=== PATIENT | female | born 1995 | race Hispanic/Latino ===

== ENCOUNTER 2022-01-25 21:22 | Inpatient (IN) | payer MEDICAID, OTHER, SELFPAY ==
[2022-01-25 21:50] VITALS: BMI 30.7
[2022-01-25] MEDS ORDERED: hydrALAZINE 20 MG/ML VIAL SLOW IVP PRN ×3 (22:19→23:40)
[2022-01-25 22:56] LABS: #Monocytes 0.4 10x3/uL (0.0-1.1); #Neutrophils 5.9 10x3/uL (1.5-8.4); %Basophils 0.4 % (0.0-2.0); %Eosinophils 0.5 % (0.0-6.0); %Lymphocytes 21.8 % (18.0-47.0); %Neutrophils 71.8 % (40.0-75.0); Hemoglobin 11.4 g/dL (12.0-15.5); Mean Corpuscular HGB CONC 34.7 g/dL (32.0-36.0); Mean Corpuscular Hemoglobin 28.8 pg (27.0-33.0); Mean Corpuscular Volume 83.1 fl (81.6-98.3); Mean Platelet Volume 10.5 fl (7.4-10.4); Platelet Count 245 10x3/uL (150-450); RBC Distribution Width 13.2 % (11.5-14.5); Red Blood Cell (RBC) Count 3.96 10x6/uL (3.90-5.03); White Blood Cell (WBC) Count 8.2 10x3/uL (3.5-10.5)
[2022-01-25 23:12] LABS: ALT (SGPT) 44 U/L (8-55); AST (SGOT) 37 U/L (5-34); Albumin 2.9 g/dL (3.5-5.0); Alkaline Phosphatase 335 U/L (40-110); Anion Gap 17 mmol/L (10-20); BUN (Urea Nitrogen) 10 mg/dL (7.0-18.7); Bilirubin, Total 1.1 mg/dL (0.2-1.2); Calc. Creatinine Clearance 138 mL/min (70-130); Carbon Dioxide 21 mmol/L (22-29); Chloride 101 mmol/L (98-107); Creatinine, Urine 253.65 mg/dL (47-110); Globulin 3.6 g/dL (2.4-3.5); Glucose 98 mg/dL (70-105); Potassium 4.1 mmol/L (3.5-5.1); Protein, Total 6.5 g/dL (6.0-8.3); Sodium 135 mmol/L (136-145)
[2022-01-25 23:19] LABS: Bilirubin 3+ (Negative); Blood, Urine 150 (Negative); Clarity Cloudy (Clear); Glucose, Urine (Dipstick) Normal (Negative); Ketone, Urine 5 mg/dL (Negative); Leukocyte 100 (Negative); Nitrite Negative (Negative); Protein, Urine (Dipstick) 100 mg/dl (Neg-Trace)
[2022-01-25 23:20] LABS: Urine Culture Reflex No No
[2022-01-25] MEDS ORDERED: Docusate 100 MG CAP PO PRN (23:27)
[2022-01-25] MEDS ORDERED: Promethazine HCl 25 MG/ML VIAL IM PRN ×3 (23:27→23:40)
[2022-01-25] MEDS ORDERED: Acetaminophen 500 MG TAB PO PRN (23:27)
[2022-01-25] MEDS ORDERED: Ondansetron PF 4 MG/2 ML Vial IVP PRN ×3 (23:27→23:40)
[2022-01-25] MEDS ORDERED: Butorphanol Tartrate 1 MG/ML VIAL SLOW IVP PRN (23:27)
[2022-01-25] MEDS ORDERED: Lorazepam 2 MG/ML VIAL SLOW IVP PRN ×2 (23:27→23:33)
[2022-01-25] MEDS ORDERED: Calcium Gluc 4.6 MEQ/10 ML (100 MG/ML) SLOW IVP PRN ×2 (23:27→23:33)
[2022-01-25 23:28] LABS: WBC/HPF 0-3 HPF (0-3)
[2022-01-25 23:29] LABS: Bacteria/HPF Rare-Few HPF (None Seen); Squamous Epithelial 21-50 HPF (0-3)
[2022-01-25] MEDS ORDERED: Lactated Ringer's 1,000 ML IV SCH ×2 (23:30→23:59)
[2022-01-25] MEDS ORDERED: Magnesium Sulfate 20 gm/500 ml 4 GM/100 ML BAG IVPB SCH (23:45)
[2022-01-25] MEDS ORDERED: Magnesium Sulfate 20 gm/500 ml 20 GM/500 ML BAG IVPB SCH (23:45)
[2022-01-25] MEDS ORDERED: Magnesium Sulfate 4 GM in Sodium Chloride 0.9% 250 ML 250 ML IVPB SCH (23:45)
[2022-01-25] MEDS ORDERED: Betamet Acet/Betamet Na Ph 30 MG/5 ML VIAL IM SCH ×2 (23:59)
[2022-01-26] MEDS ORDERED: Betamet Acet/Betamet Na Ph 30 MG/5 ML VIAL ONE (00:06)
[2022-01-26] MEDS: Betamet Acet/Betamet Na Ph 30 MG/5 ML VIAL IM SCH ×2 (00:22→17:47)
[2022-01-26] MEDS ORDERED: Misoprostol 200 MCG TAB PR PRN (01:07)
[2022-01-26] MEDS ORDERED: Vancomycin 1 GM in Premix Bag 1 BAG IVPB SCH (01:15)
[2022-01-26 01:27] LABS: Hep B Surf Ag Non-Reactive S/CO (NonReactive); Syphilis Antibody Nonreactive (Nonreactive); Syphilis Antibody Index 0.03 S/CO (<1.00 Non-Reactive)
[2022-01-26 01:28] LABS: HIV (1/2) Antibody/Antigen Non-Reactive (NonReactive); HIV 1/2 INDEX 0.07 S/CO (<1.00)
[2022-01-26] MEDS ORDERED: NS w/ Oxytocin 30 units 500 ML IV SCH (01:30)
[2022-01-26] MEDS ORDERED: Azithromycin 1,000 MG in Sodium Chloride 0.9% 500 ML IVPB SCH (01:30)
[2022-01-26] MEDS ORDERED: Gentamicin 330 MG in Sodium Chloride 0.9% 100 ML IVPB SCH (01:30)
[2022-01-26 01:35] LABS: HBSAg Index 0.14 S/CO (0-0.99)
[2022-01-26] MEDS: Vancomycin HCl 1 GM in Sodium Chloride 0.9% 250 ML 250 ML IVPB SCH ×2 (02:15→13:53)
[2022-01-26 03:26] LABS: SARS-CoV-2 NAA Rapid Test Not Detected (NotDetected)
[2022-01-26] MEDS ORDERED: Azithromycin 500 MG in Sodium Chloride 0.9% 250 ML 250 ML IVPB SCH (05:30)
[2022-01-26] MEDS ORDERED: Clindamycin/D5W 900 MG in Premix Bag 1 BAG IVPB SCH (06:00)
[2022-01-26] MEDS ORDERED: Sodium Chloride 0.9% 1,000 ML IV SCH (07:30)
[2022-01-26] MEDS ORDERED: Dexamethasone 10 MG/ML VIAL IM SCH (09:00)
[2022-01-26] MEDS: NIFEdipine 10 MG CAP ONE (11:07)
[2022-01-26] MEDS ORDERED: NIFEdipine 10 MG CAP PO PRN (11:09)
[2022-01-26] MEDS ORDERED: NIFEdipine 10 MG CAP PO SCH (12:00)
[2022-01-26] MEDS ORDERED: Lidocaine 1% PF 10 ML AMP ONE (18:38)
[2022-01-27] MEDS ORDERED: hydrALAZINE 20 MG/ML VIAL SLOW IVP PRN (00:48)
[2022-01-27] MEDS ORDERED: Bisacodyl 10 MG SUPP PR PRN (00:48)
[2022-01-27] MEDS ORDERED: Preparation H Ointment 28 GM TUBE PR PRN (00:48)
[2022-01-27] MEDS ORDERED: Milk Of Magnesia 30 ML UDCUP PO PRN (00:48)
[2022-01-27] MEDS ORDERED: Benzocaine-Menthol 82.5 ML CAN TOP PRN (00:48)
[2022-01-27] MEDS ORDERED: HYDROcodone/Acetaminophen 5/325 mg Tablet PO PRN (00:48)
[2022-01-27] MEDS ORDERED: Promethazine HCl 25 MG/ML VIAL IM PRN (00:48)
[2022-01-27] MEDS ORDERED: Lanolin Ointment 7 GM TUBE TOP PRN (00:48)
[2022-01-27] MEDS ORDERED: Boostrix 0.5 ML (Tdap) VIAL IM ONE (00:48)
[2022-01-27] MEDS ORDERED: Ondansetron PF 4 MG/2 ML Vial IVP PRN (00:48)
[2022-01-27] MEDS ORDERED: NS w/ Oxytocin 30 units 500 ML IV SCH (01:00)
[2022-01-27] MEDS: Ibuprofen 800 MG TAB PO SCH ×3 (08:14→21:16)
[2022-01-27] MEDS: Docusate 100 MG CAP PO SCH ×2 (10:19→21:17)
[2022-01-27] MEDS: Ferrous Sulfate 325 MG TAB PO SCH ×2 (10:19→16:50)
[2022-01-27] MEDS: Prenatal Vitamin 1 TAB PO SCH (10:19)
[2022-01-28] MEDS: Ibuprofen 800 MG TAB PO SCH ×2 (06:19→13:21)
[2022-01-28 07:27] VITALS: BP 123/69; TEMP 97.8
[2022-01-28] MEDS: Docusate 100 MG CAP PO SCH (08:07)
[2022-01-28] MEDS: Prenatal Vitamin 1 TAB PO SCH (08:07)
[2022-01-28] MEDS: Ferrous Sulfate 325 MG TAB PO SCH ×2 (08:10→14:58)
== END 2022-01-28 16:45 | disposition home or self-care (01) | DRG 805 ==
LOC: CSHLD/OP 21:22 → CSHLD 23:53 → CSHPP 01-27 09:30
PROVIDERS: ADMIT Family Medicine; ATTEND Family Medicine
PROC: 10E0XZZ Delivery of Products of Conception, External Approach (ICD-10-PCS; principal; 2022-01-26)
PROC: 0HQ9XZZ Repair Perineum Skin, External Approach (ICD-10-PCS; 2022-01-26)
DX: O42.013 Preterm premature rupture of membranes, onset of labor within 24 hours of rupture, third trimester (principal); O60.14X0 Preterm labor third trimester with preterm delivery third trimester, not applicable or unspecified; Z37.0 Single live birth; Z3A.33 33 weeks gestation of pregnancy; Z20.822 Contact with and (suspected) exposure to COVID-19; O77.0 Labor and delivery complicated by meconium in amniotic fluid; O70.0 First degree perineal laceration during delivery
CPT/HCPCS: 36415; 51702; 80053; 81001; 82570; 84156; 85025; 86780; 86850; 86900; 86901; 87070; 87205; 87340; 87389; 99285; J0456; J0595; J2590; J3370; J3475; J7050; J7120; U0002

== ENCOUNTER 2022-03-16 04:00 | Inpatient (IN) | payer MEDICAID, SELFPAY ==
[2022-03-16] MEDS ORDERED: Ondansetron PF 4 MG/2 ML Vial ONE ×2 (04:30→10:08)
[2022-03-16] MEDS ORDERED: Morphine 4 MG/ML VIAL ONE (04:43)
[2022-03-16 04:47] LABS: Bilirubin Neg (Negative); Blood, Urine Negative (Negative); Clarity Cloudy (Clear); Glucose, Urine (Dipstick) Normal (Negative); Ketone, Urine 5 mg/dL (Negative); Leukocyte 25 (Negative); Nitrite Negative (Negative); Protein, Urine (Dipstick) 30 mg/dl (Neg-Trace)
[2022-03-16 04:52] LABS: Hemoglobin 13.1 g/dL (12.0-15.5); Mean Corpuscular HGB CONC 34.8 g/dL (32.0-36.0); Mean Corpuscular Hemoglobin 28.5 pg (27.0-33.0); Mean Corpuscular Volume 81.7 fl (81.6-98.3); Mean Platelet Volume 9.2 fl (7.4-10.4); Platelet Count 316 10x3/uL (150-450); RBC Distribution Width 13.5 % (11.5-14.5); White Blood Cell (WBC) Count 7.6 10x3/uL (3.5-10.5)
[2022-03-16 04:54] LABS: Bacteria/HPF 1+ HPF (None Seen); MDiff Complete? YES; RBC/HPF None Seen HPF (0-3); WBC/HPF 0-3 HPF (0-3)
[2022-03-16 04:59] LABS: BHCG - Serum Negative (NEGATIVE); Pregs Control Background? CLEAR/WHITE (CLR/WHITE); Pregs Control Bar Appear? YES (CONTROL BAR); Triple Phosphate Crystal 1+ HPF (None Seen)
[2022-03-16 05:06] LABS: ALT (SGPT) 504 U/L (8-55); AST (SGOT) 471 U/L (5-34); Albumin 4.6 g/dL (3.5-5.0); Alkaline Phosphatase 252 U/L (40-110); Anion Gap 15 mmol/L (10-20); BUN (Urea Nitrogen) 17 mg/dL (7.0-18.7); Bilirubin, Total 1.4 mg/dL (0.2-1.2); Calc. Creatinine Clearance 0 mL/min (70-130); Calcium 9.7 mg/dL (7.8-10.44); Carbon Dioxide 25 mmol/L (22-29); Chloride 102 mmol/L (98-107); Estimated GFR 120; Globulin 3.6 g/dL (2.4-3.5); Glucose 165 mg/dL (70-105); Lipase 156 U/L (8-78); Potassium 3.6 mmol/L (3.5-5.1); Protein, Total 8.2 g/dL (6.0-8.3); Sodium 138 mmol/L (136-145)
[2022-03-16 05:40] LABS: Band 1 % (5-11); Lymphocytes 23 % (21-51); Monocytes 4 % (0-10); Neutrophil 67 % (42-75); Reactive Lymphocytes 5 % (0-10)
[2022-03-16 05:41] LABS: Platelet Morphology Comment Appears Adequate
[2022-03-16] MEDS ORDERED: Piperacillin/Tazobactam 3.375 GM VIAL ONE (06:30)
[2022-03-16 06:36] LABS: SARS-CoV-2 NAA Rapid Test Not Detected (NotDetected)
[2022-03-16] MEDS ORDERED: EPINEPHrine 1 MG/ML AMP ONE (07:08)
[2022-03-16] MEDS ORDERED: Bupivacaine 0.25% HCL 30 ML VIAL ONE (07:08)
[2022-03-16] MEDS ORDERED: CEFAZOLIN 2 GM VIAL ONE (10:03)
[2022-03-16] MEDS ORDERED: SUGAMMADEX SODIUM 200 MG/2 ML VIAL ONE (10:06)
[2022-03-16] MEDS ORDERED: Fentanyl 250 MCG/5 ML VIAL ONE (10:06)
[2022-03-16] MEDS ORDERED: Rocuronium Bromide 10 MG/ML (10ML VIAL) ONE (10:08)
[2022-03-16] MEDS ORDERED: Dexamethasone 4 mg/ml Vial ONE (10:08)
[2022-03-16] MEDS ORDERED: PROPOFOL 20 ML ONE (10:08)
[2022-03-16] MEDS ORDERED: Lidocaine 1% PF 5 ML VIAL ONE (10:08)
[2022-03-16] MEDS ORDERED: Iopamidol 30 ML ONE (10:11)
[2022-03-16] MEDS ORDERED: CEFAZOLIN 1 GM VIAL ONE (10:17)
[2022-03-16] MEDS ORDERED: Midazolam HCl 2 mg/2 ml Vial ONE (10:25)
[2022-03-16] MEDS ORDERED: Ketorolac Tromethamine 30 MG/ML VIAL ONE (10:41)
[2022-03-16] MEDS ORDERED: Esmolol 100 MG/10 ML VIAL ONE (10:57)
[2022-03-16] MEDS ORDERED: PHENYLEPHRINE-NS 100 MCG/ML 10 ML SYRINGE ONE (10:58)
[2022-03-16] MEDS ORDERED: Glycopyrrolate 0.2 MG/ML 5 ML SYRINGE ONE (11:25)
[2022-03-16] MEDS ORDERED: HYDROcodone/Acetaminophen 10/325 mg Tablet PO PRN (15:04)
[2022-03-16] MEDS ORDERED: Morphine 2 MG/ML VIAL SLOW IVP PRN (15:04)
[2022-03-16] MEDS ORDERED: Calcium Carbonate 500 MG ChewTAB PO PRN (15:04)
[2022-03-16] MEDS ORDERED: Acetaminophen 325 MG TAB PO PRN (15:04)
[2022-03-16] MEDS ORDERED: Dextrose 50% Abboject 50 ML SYRINGE SLOW IVP PRN (15:04)
[2022-03-16] MEDS ORDERED: Ondansetron PF 4 MG/2 ML Vial IVP PRN (15:04)
[2022-03-16] MEDS ORDERED: Promethazine HCl 25 MG/ML VIAL IM PRN (15:04)
[2022-03-16] MEDS ORDERED: Dextrose 5% in Water 1,000 ML IV PRN (15:04)
[2022-03-16] MEDS ORDERED: hydrALAZINE 20 MG/ML VIAL SLOW IVP PRN (15:04)
[2022-03-16] MEDS ORDERED: Mag-Al Plus 1200 MG/1200 MG/120 MG/30 ML UDCUP PO PRN (15:42)
[2022-03-16 16:03] VITALS: BMI 25.4
[2022-03-16] MEDS: D5 1/2 NS w/20 mEq KCL 1,000 ML IV SCH (17:50)
[2022-03-16] MEDS ORDERED: Indomethacin 50 MG SUPP PR SCH (18:00)
[2022-03-16] MEDS: Ketorolac Tromethamine 30 MG/ML VIAL IVP SCH ×2 (18:06→23:25)
[2022-03-16] MEDS ORDERED: Levofloxacin 500 mg/D5W 100 ml Premix Bag ONE (20:23)
[2022-03-16] MEDS: Famotidine/PF 20 mg/2ml Vial SLOW IVP SCH (20:24)
[2022-03-16] MEDS: Famotidine 20 MG TAB PO SCH (21:35)
[2022-03-17] MEDS: Famotidine 20 MG TAB PO SCH ×2 (00:57→07:44)
[2022-03-17] MEDS: D5 1/2 NS w/20 mEq KCL 1,000 ML IV SCH ×3 (03:30→11:44)
[2022-03-17] MEDS ORDERED: D5 1/2 NS w/20 mEq KCL 1,000 ML ONE (03:41)
[2022-03-17 04:47] LABS: Hemoglobin 11.3 g/dL (12.0-15.5); Mean Corpuscular HGB CONC 33.4 g/dL (32.0-36.0); Mean Corpuscular Hemoglobin 27.9 pg (27.0-33.0); Mean Corpuscular Volume 83.5 fl (81.6-98.3); Mean Platelet Volume 9.3 fl (7.4-10.4); Platelet Count 278 10x3/uL (150-450); RBC Distribution Width 13.9 % (11.5-14.5); Red Blood Cell (RBC) Count 4.05 10x6/uL (3.90-5.03); White Blood Cell (WBC) Count 8.8 10x3/uL (3.5-10.5)
[2022-03-17 04:58] LABS: ALT (SGPT) 555 U/L (8-55); AST (SGOT) 260 U/L (5-34); Albumin 3.5 g/dL (3.5-5.0); Alkaline Phosphatase 198 U/L (40-110); Anion Gap 14 mmol/L (10-20); BUN (Urea Nitrogen) 7 mg/dL (7.0-18.7); Bilirubin, Total 0.8 mg/dL (0.2-1.2); Calc. Creatinine Clearance 121 mL/min (70-130); Calcium 8.5 mg/dL (7.8-10.44); Carbon Dioxide 22 mmol/L (22-29); Chloride 107 mmol/L (98-107); Estimated GFR 123; Globulin 2.7 g/dL (2.4-3.5); Glucose 114 mg/dL (70-105); Lipase 69 U/L (8-78); Protein, Total 6.2 g/dL (6.0-8.3); Sodium 139 mmol/L (136-145)
[2022-03-17 05:03] LABS: MDiff Complete? YES
[2022-03-17 06:08] LABS: Eosinophils 1 % (0-10); Lymphocytes 23 % (21-51); Monocytes 7 % (0-10); Neutrophil 69 % (42-75)
[2022-03-17 06:10] LABS: Diff Comment (RBC Morph SCRN) NORMAL; Platelet Morphology Comment Appears Adequate
[2022-03-17] MEDS: Ketorolac Tromethamine 30 MG/ML VIAL IVP SCH ×2 (06:10→11:43)
[2022-03-17] MEDS: Famotidine/PF 20 mg/2ml Vial SLOW IVP SCH (08:31)
[2022-03-17] MEDS ORDERED: HYDROmorphone 0.5 MG/0.5 ML SYRINGE ONE (12:10)
[2022-03-17] MEDS ORDERED: Iopamidol 15 ML ONE (12:21)
[2022-03-17] MEDS ORDERED: Indomethacin 50 MG SUPP ONE (12:22)
[2022-03-17] MEDS ORDERED: Ondansetron PF 4 MG/2 ML Vial ONE (12:24)
[2022-03-17] MEDS ORDERED: PROPOFOL 20 ML ONE (12:24)
[2022-03-17] MEDS ORDERED: Dexamethasone 4 mg/ml Vial ONE (12:24)
[2022-03-17] MEDS ORDERED: Fentanyl 100 MCG/2 ML VIAL ONE (12:24)
[2022-03-17] MEDS ORDERED: Midazolam HCl 2 mg/2 ml Vial ONE (12:25)
[2022-03-17] MEDS ORDERED: Lidocaine 2% MPF 10 ML AMP (For Epidural Use) ONE (12:25)
[2022-03-17 20:03] VITALS: BP 149/87; TEMP 96.9
== END 2022-03-17 20:12 | disposition home or self-care (01) | DRG 419 ==
LOC: CSHERS 04:00 → CSHTELE 15:05 → OBSVTOIN 15:06
PROVIDERS: ADMIT Specialist; ATTEND Specialist
PROC: 0FT44ZZ Resection of Gallbladder, Percutaneous Endoscopic Approach (ICD-10-PCS; 2022-03-16)
PROC: BF101ZZ Fluoroscopy of Bile Ducts using Low Osmolar Contrast (ICD-10-PCS; 2022-03-16)
PROC: 0FC98ZZ Extirpation of Matter from Common Bile Duct, Via Natural or Artificial Opening Endoscopic (ICD-10-PCS; principal; 2022-03-17)
PROC: BF101ZZ Fluoroscopy of Bile Ducts using Low Osmolar Contrast (ICD-10-PCS; 2022-03-17)
PROC: BF151ZZ Fluoroscopy of Liver using Low Osmolar Contrast (ICD-10-PCS; 2022-03-17)
DX: K80.64 Calculus of gallbladder and bile duct with chronic cholecystitis without obstruction (principal); Z20.822 Contact with and (suspected) exposure to COVID-19; Z88.1 Allergy status to other antibiotic agents
CPT/HCPCS: 47532; 74330; 76705; 80053; 81003; 81015; 83690; 84703; 85025; 88304; 94640; 94760; 94799; 96361; 96374; 96375; C1713; C1725; G0378; J0171; J0690; J1100; J1170; J1610; J1885; J1956; J2250; J2270; J2405; J2543; J2704; J3010; J3480; J7620; Q9967; S0020; S0028; U0002